=== PATIENT | female | born 2000 | race Two or more races ===

== ENCOUNTER 2022-11-23 15:38 | Emergency (ER) | payer MEDICAID ==
[~2022-11-23] VITALS: Ht 149.9 cm; Wt 67.0 kg
[2022-11-23 15:55] VITALS: BP 144/45
== END 2022-11-23 17:33 | disposition home or self-care (01) ==
LOC: ER 15:39
DX: J02.9 Acute pharyngitis, unspecified (principal)
CPT/HCPCS: 87081; 87880; 99283